=== PATIENT | male | born 1995 | race Caucasian/White ===

== ENCOUNTER 2020-08-06 06:55 | Emergency (ER) | payer OTHER ==
[2020-08-06 07:08] VITALS: TEMP 98.6
--- NOTE | 2020-08-06 07:36 | ED ---
General Adult HPI - General Chief complaint: Chest Pain Stated complaint: Coughing up blood Time Seen by Provider: 08/06/20 07:15 Source: patient Mode of arrival: ambulatory Limitations: no limitations - History of Present Illness Initial comments: Patient is a 25-year-old male presenting to the emergency Department with complaints of having episode of hemoptysis this morning. Patient states he has chronic abdominal pain, he smokes marijuana to help control it. Patient states he did smoke this morning, he went to cough something up and noticed it was a "blood clot." Patient continued to have bright red sputum. Patient states this lasted for about a minute. He did have some left sided rib pain associated with this. Patient states he has had this happen before, a few months ago but it was just a little bit in his sputum. Patient denies any chest pain at this time. He does admit to being an occasional smoker, he stopped daily smoking a year ago, he does smoke marijuana daily. Patient was drinking a little bit last night for his birthday but he had no vomiting. He admits to 2-3 drinks. He denies any shortness of breath, no recent fevers. Denies any abdominal pain at this time. He has no further complaints. Upon arrival to the ER, his vital signs are stable. - Related Data Previous Rx's Medication Instructions Recorded Omeprazole [PriLOSEC] 20 mg PO AC-BRKFST #14 cap 08/06/20 Allergies Allergy/AdvReac Type Severity Reaction Status Date / Time No Known Allergies Allergy Verified 08/06/20 08:32 Review of Systems ROS Statement: Those systems with pertinent positive or pertinent negative responses have been documented in the HPI. ROS Other: All systems not noted in ROS Statement are negative. Past Medical History Past Medical History: No Reported History History of Any Multi-Drug Resistant Organisms: None Reported Past Surgical History: Orthopedic Surgery Past Psychological History: No Psychological Hx Reported Smoking Status: Former smoker Past Alcohol Use History: Occasional Past Drug Use History: Marijuana General Exam - General Exam Comments Initial Comments: GENERAL: Patient is well-developed and well-nourished. Patient is nontoxic and in no acute distress. HEAD: Atraumatic, normocephalic. EYES: Pupils equal round and reactive to light, extraocular movements intact, sclera anicteric, conjunctiva are normal. Eyelids were unremarkable. ENT: TMs normal, nares patent, oropharynx clear without exudates. Moist mucous membranes. NECK: Normal range of motion, supple without lymphadenopathy or JVD. LUNGS: Unlabored respirations. Breath sounds clear to auscultation bilaterally and equal. No wheezes rales or rhonchi. HEART: Regular rate and rhythm without murmurs, rubs or gallops. ABDOMEN: Soft, nontender, normoactive bowel sounds. No guarding, no rebound. No masses appreciated. : Deferred MUSCULOSKELETAL: Normal extremities with adequate strength and normal range of motion, no pitting or edema. No clubbing or cyanosis. NEUROLOGICAL: Patient is alert and oriented x 3. Motor and sensory are also intact. Cranial nerves II through XII grossly intact. Symmetrical smile. Normal speech, normal gait. PSYCH: Normal mood, normal affect. SKIN: Warm, Dry, normal turgor, no rashes or lesions noted. Limitations: no limitations Course Vital Signs 08/06/20 08/06/20 08/06/20 07:05 08:08 09:08 Temperature 98.6 F Pulse Rate 107 H Respiratory 16 18 18 Rate Blood Pressure 143/85 O2 Sat by Pulse 99 Oximetry 08/06/20 08/06/20 08/06/20 09:43 10:00 10:23 Temperature 98.6 F Pulse Rate 78 78 Respiratory 18 18 18 Rate Blood Pressure 126/71 126/71 O2 Sat by Pulse 97 97 Oximetry EKG Findings - EKG Comments: EKG Findings:: Normal sinus rhythm, normal ECG, no signs of acute ischemia. Ventricular rate 81, IL interval 154, QT 358. Medical Decision Making - Medical Decision Making Patient is a 25-year-old male presenting for an episode of hemoptysis that castano ppen this morning after he smoked marijuana. He states initially it was a "blood clot" and continue with bright red blood with a few more coughs. He denies any pain at this time but did have some left-sided rib pain with the coughing. Has revealed normal hemoglobin, normal white count. Chest x-ray shows no acute process, patient has been a symptomatically the ER. I discussed with patient that he needs to follow up with GI for a possible scope. I recommended stop smoking, no alcohol. I did give him GI referral. I also recommended omeprazole. Patient is in agreement this plan of care. Strict return parameters were discussed with the patient and he verbalized understanding. Case discussed with Dr. Cota. - Lab Data Result diagrams: 08/06/20 07:51 08/06/20 07:51 Lab Results 08/06/20 08/06/20 08/06/20 Range/Units 07:51 07:51 07:51 WBC 9.7 (3.8-10.6) k/uL RBC 5.12 (4.30-5.90) m/uL Hgb 15.2 (13.0-17.5) gm/dL Hct 44.4 (39.0-53.0) % MCV 86.7 (80.0-100.0) fL MCH 29.7 (25.0-35.0) pg MCHC 34.3 (31.0-37.0) g/dL RDW 12.2 (11.5-15.5) % Plt Count 320 (150-450) k/uL MPV 6.3 Neutrophils % 65 % Lymphocytes % 24 % Monocytes % 6 % Eosinophils % 3 % Basophils % 1 % Neutrophils # 6.3 (1.3-7.7) k/uL Lymphocytes # 2.3 (1.0-4.8) k/uL Monocytes # 0.6 (0-1.0) k/uL Eosinophils # 0.3 (0-0.7) k/uL Basophils # 0.1 (0-0.2) k/uL PT 9.9 (9.0-12.0) sec INR 0.9 (<1.2) APTT 25.2 (22.0-30.0) sec Sodium 140 (137-145) mmol/L Potassium 4.6 (3.5-5.1) mmol/L Chloride 104 (98-107) mmol/L Carbon Dioxide 24 (22-30) mmol/L Anion Gap 12 mmol/L BUN 14 (9-20) mg/dL Creatinine 0.76 (0.66-1.25) mg/dL Est GFR (CKD-EPI)AfAm >90 (>60 ml/min/1.73 sqM) Est GFR (CKD-EPI)NonAf >90 (>60 ml/min/1.73 sqM) Glucose 94 (74-99) mg/dL Calcium 10.0 (8.4-10.2) mg/dL Total Bilirubin 0.5 (0.2-1.3) mg/dL AST 22 (17-59) U/L ALT 22 (4-49) U/L Alkaline Phosphatase 62 (38-126) U/L Troponin I (0.000-0.034) ng/mL Total Protein 7.5 (6.3-8.2) g/dL Albumin 4.7 (3.5-5.0) g/dL Urine Color Urine Appearance (Clear) Urine pH (5.0-8.0) Ur Specific [place] (1.001-1.035) Urine Protein (Negative) Urine Glucose (UA) (Negative) Urine Ketones (Negative) Urine Blood (Negative) Urine Nitrite (Negative) Urine Bilirubin (Negative) Urine Urobilinogen (<2.0) mg/dL Ur Leukocyte Esterase (Negative) Urine RBC (0-5) /hpf Urine Mucus (None) /hpf Urine Sperm (None) /hpf 08/06/20 08/06/20 Range/Units 07:51 07:51 WBC (3.8-10.6) k/uL RBC (4.30-5.90) m/uL Hgb (13.0-17.5) gm/dL Hct (39.0-53.0) % MCV (80.0-100.0) fL MCH (25.0-35.0) pg MCHC (31.0-37.0) g/dL RDW (11.5-15.5) % Plt Count (150-450) k/uL MPV Neutrophils % % Lymphocytes % % Monocytes % % Eosinophils % % Basophils % % Neutrophils # (1.3-7.7) k/uL Lymphocytes # (1.0-4.8) k/uL Monocytes # (0-1.0) k/uL Eosinophils # (0-0.7) k/uL Basophils # (0-0.2) k/uL PT (9.0-12.0) sec INR (<1.2) APTT (22.0-30.0) sec Sodium (137-145) mmol/L Potassium (3.5-5.1) mmol/L Chloride (98-107) mmol/L Carbon Dioxide (22-30) mmol/L Anion Gap mmol/L BUN (9-20) mg/dL Creatinine (0.66-1.25) mg/dL Est GFR (CKD-EPI)AfAm (>60 ml/min/1.73 sqM) Est GFR (CKD-EPI)NonAf (>60 ml/min/1.73 sqM) Glucose (74-99) mg/dL Calcium (8.4-10.2) mg/dL Total Bilirubin (0.2-1.3) mg/dL AST (17-59) U/L ALT (4-49) U/L Alkaline Phosphatase (38-126) U/L Troponin I 0.033 (0.000-0.034) ng/mL Total Protein (6.3-8.2) g/dL Albumin (3.5-5.0) g/dL Urine Color Yellow Urine Appearance Clear (Clear) Urine pH 5.5 (5.0-8.0) Ur Specific [place] 1.026 (1.001-1.035) Urine Protein 1+ H (Negative) Urine Glucose (UA) Negative (Negative) Urine Ketones Negative (Negative) Urine Blood Trace H (Negative) Urine Nitrite Negative (Negative) Urine Bilirubin Negative (Negative) Urine Urobilinogen <2.0 (<2.0) mg/dL Ur Leukocyte Esterase Trace H (Negative) Urine RBC 3 (0-5) /hpf Urine Mucus Rare H (None) /hpf Urine Sperm Moderate H (None) /hpf Disposition Clinical Impression: Hemoptysis Disposition: HOME SELF-CARE Condition: Stable Instructions (If sedation given, give patient instructions): Hemoptysis (ED) Additional Instructions: Please return to the Emergency Department if symptoms worsen or any other concerns. Discontinue smoking. Trial of omeprazole, daily for 1 month. Please follow up with GI as discussed. Prescriptions: Omeprazole [PriLOSEC] 20 mg PO -BRKFST #14 cap Is patient prescribed a controlled substance at d/c from ED?: No Referrals: Dwight Monsalve DO [Primary Care Provider] - 1-2 days Ivan Menon MD [STAFF PHYSICIAN] - 1-2 days
--- NOTE | 2020-08-06 08:07 | XR ---
EXAMINATION TYPE: XR chest 2V DATE OF EXAM: 08/06/2020 COMPARISON: NONE HISTORY: Hemoptysis. TECHNIQUE: Frontal and lateral views of the chest are obtained. FINDINGS: There is no focal air space opacity, pleural effusion, or pneumothorax seen. The cardiac silhouette size is within normal limits. The osseous structures are intact. IMPRESSION: No acute cardiopulmonary process.
[2020-08-06 08:26] LABS: Appearance,Urine Clear (Clear); Bilirubin,Urine Negative (Negative); Blood,Urine Trace (Negative); Color,Urine Yellow; Glucose,Urine (UA) Negative (Negative); Ketones,Urine Negative (Negative); Leukocyte Esterase,Urine Trace (Negative); Mucus,Urine Rare /hpf; Nitrite,Urine Negative (Negative); PH, Urine 5.5 (5.0-8.0); Protein,Urine 1+ (Negative); RBC,Urine 3 /hpf (0-5); Specific Gravity,Urine 1.026 (1.001-1.035); Sperm,Urine Moderate /hpf; Urobilinogen,Urine <2.0 mg/dL (<2.0)
[2020-08-06 09:11] VITALS: RESP 18
[2020-08-06 09:23] LABS: Basophils # (A) 0.1 k/uL (0-0.2); Basophils % (A) 1 %; Eosinophils # (A) 0.3 k/uL (0-0.7); Eosinophils % (A) 3 %; HCT 44.4 % (39.0-53.0); HGB 15.2 gm/dL (13.0-17.5); Lymphocytes # (A) 2.3 k/uL (1.0-4.8); Lymphocytes % (A) 24 %; MCH 29.7 pg (25.0-35.0); MCHC 34.3 g/dL (31.0-37.0); MCV 86.7 fL (80.0-100.0); Mean Platelet Volume 6.3; Monocytes # (A) 0.6 k/uL (0-1.0); Monocytes % (A) 6 %; Neutrophils # (A) 6.3 k/uL (1.3-7.7); Neutrophils % (A) 65 %; Platelet Count 320 k/uL (150-450); RBC 5.12 m/uL (4.30-5.90); RDW 12.2 % (11.5-15.5); WBC 9.7 k/uL (3.8-10.6)
[2020-08-06 09:34] LABS: ALT 22 U/L (4-49); AST 22 U/L (17-59); African American GFR (CKD) >90 (>60 ml/min/1.73 sqM); Albumin 4.7 g/dL (3.5-5.0); Alkaline Phosphatase 62 U/L (38-126); Anion Gap 12 mmol/L; Blood Urea Nitrogen 14 mg/dL (9-20); Carbon Dioxide 24 mmol/L (22-30); Chloride 104 mmol/L (98-107); Glucose 94 mg/dL (74-99); INR 0.9 (<1.2); Non-African American GFR(CKD) >90 (>60 ml/min/1.73 sqM); Partial Thromboplastin Time 25.2 sec (22.0-30.0); Potassium 4.6 mmol/L (3.5-5.1); Prothrombin Time 9.9 sec (9.0-12.0); Sodium 140 mmol/L (137-145); Total Bilirubin 0.5 mg/dL (0.2-1.3); Total Protein 7.5 g/dL (6.3-8.2)
[2020-08-06 09:43] VITALS: BP 126/71; PULSE 78
== END 2020-08-06 10:25 | disposition home or self-care (01) ==
LOC: EC 06:55
DX: R04.2 Hemoptysis (principal); F12.90 Cannabis use, unspecified, uncomplicated; Z87.891 Personal history of nicotine dependence
CPT/HCPCS: 36415; 71046; 80053; 81001; 84484; 85025; 85610; 85730; 93005; 99285

== ENCOUNTER 2021-01-21 13:46 | Emergency (ER) | payer OTHER ==
[2021-01-21 13:55] VITALS: TEMP 98.3
[2021-01-21] MEDS ORDERED: ONDANSETRON 4 MG/2 ML VIAL IVP STA (15:28)
[2021-01-21] MEDS ORDERED: diphenhydrAMINE 50 MG/ML 1 ML VIAL IVP STA (15:28)
[2021-01-21] MEDS ORDERED: SODIUM CHLORIDE 0.9% 1,000 ML IV STA (15:28)
[2021-01-21] MEDS ORDERED: FAMOTIDINE 20 MG/2 ML VIAL IV STA (15:29)
[2021-01-21 15:53] LABS: Basophils # (A) 0.1 k/uL (0-0.2); Basophils % (A) 1 %; Eosinophils # (A) 0.1 k/uL (0-0.7); Eosinophils % (A) 1 %; HCT 43.7 % (39.0-53.0); HGB 15.2 gm/dL (13.0-17.5); Lymphocytes % (A) 26 %; MCH 30.8 pg (25.0-35.0); MCHC 34.7 g/dL (31.0-37.0); MCV 88.6 fL (80.0-100.0); Mean Platelet Volume 8.1; Monocytes # (A) 0.6 k/uL (0-1.0); Monocytes % (A) 5 %; Neutrophils # (A) 7.6 k/uL (1.3-7.7); Neutrophils % (A) 66 %; Platelet Count 368 k/uL (150-450); RBC 4.93 m/uL (4.30-5.90); WBC 11.5 k/uL (3.8-10.6)
[2021-01-21 16:00] LABS: ALT 19 U/L (4-49); AST 27 U/L (17-59); African American GFR (CKD) >90 (>60 ml/min/1.73 sqM); Albumin 4.9 g/dL (3.5-5.0); Alkaline Phosphatase 76 U/L (38-126); Anion Gap 18 mmol/L; Blood Urea Nitrogen 12 mg/dL (9-20); Carbon Dioxide 15 mmol/L (22-30); Chloride 104 mmol/L (98-107); Glucose 99 mg/dL (74-99); Lipase 1227 U/L (23-300); Magnesium 1.4 mg/dL (1.6-2.3); Non-African American GFR(CKD) >90 (>60 ml/min/1.73 sqM); Potassium 3.4 mmol/L (3.5-5.1); Sodium 137 mmol/L (137-145); Total Bilirubin 0.4 mg/dL (0.2-1.3); Total Protein 7.3 g/dL (6.3-8.2)
[2021-01-21 16:09] LABS: Partial Thromboplastin Time 21.7 sec (22.0-30.0); Prothrombin Time 11.1 sec (9.0-12.0)
--- NOTE | 2021-01-21 16:41 | XR ---
EXAMINATION TYPE: XR chest 2V DATE OF EXAM: 01/21/2021 COMPARISON: 08/06/2020 HISTORY: 25-year-old male with chest pain and weakness TECHNIQUE: PA and lateral views FINDINGS: The cardiomediastinal silhouette, aorta, and pulmonary vasculature are within normal limits. Lungs an d pleural spaces are clear. IMPRESSION: No acute cardiopulmonary process.
[2021-01-21] MEDS ORDERED: POTASSIUM CHLORIDE ER 20 MEQ TAB.ER PO STA (16:57)
[2021-01-21] MEDS ORDERED: MAGNESIUM SULFATE-D5W PMX 1 GM in DEXTROSE/WATER 1 100ML.BAG IVPB SCH (17:00)
--- NOTE | 2021-01-21 17:37 | CT ---
EXAMINATION TYPE: CT abdomen pelvis w con DATE OF EXAM: 01/21/2021 COMPARISON: 09/11/2013 HISTORY: Epigastric pain and palpitations. CT DLP: 1159.8 mGycm Automated exposure control for dose reduction was used. CONTRAST: Performed with IV Contrast, patient injected with 100 mL of Isovue 300. Lung bases are clear. There is no pleural effusion. Heart size is normal. There is no pericardial eff usion. Liver spleen stomach pancreas gallbladder appear normal. Bile ducts are not dilated. There is no adre nal mass. Kidneys have normal size. There is no hydronephrosis. There is normal contrast opacificatio n of the kidneys. Delayed images show normal renal excretion. There is no retroperitoneal adenopathy. Bladder distends smoothly. There is no inguinal hernia. There is no free fluid in the pelvis. There is no mesenteric edema. There is no ascites or free air. There is no bowel obstruction. Appendi x measures 7 mm. There is some air in the appendix and no evidence of inflammation around the appendi x. There is L5 spondylolysis with a minimal L5-S1 spondylolisthesis. There is no lumbar compression frac ture. Bony pelvis is intact. Hip joints are intact. IMPRESSION: Appendix upper limit of normal size but not changed compared to old exam. No evidence of appendicitis . L5 spondylolysis with first-degree L5-S1 spondylolisthesis. I do not see a cause for epigastric pain.
--- NOTE | 2021-01-21 18:37 | ED ---
General Adult HPI - General Chief complaint: Chest Pain Stated complaint: Dehydration, Chest Pain Source: patient Mode of arrival: ambulatory Limitations: no limitations - History of Present Illness Initial comments: Patient is a 25-year-old male that is relatively healthy presents emergency Department complaining of epigastric abdominal discomfort as well as chest palpitations. He states any focal palpitations associated with nonspecific shortness breath earlier. States this did occur previously multiple months ago, however workup in the emergency department revealed no results. Patient states that today he was also expressing some epigastric abdominal discomfort. He describes the pain as a achy, sharp sensation epigastric region. He describes the palpitations as heart racing sensation over his left chest. He does endorse a history of acid reflux and states that he believes this may be what is causing his symptoms, however he was feeling a little lightheaded today while at work as well which prompted him to come to the emergency department for evaluation. Symptoms all started earlier this morning. He denies any fevers, chills, cough. He was not vaccinated for COVID-19. Denies any urinary complaints, constipation. Still passing adequate flatus. He states he did feel nauseous but had no episodes of emesis. He denies any history of drug use. Endorses occasional marijuana and alcohol use but not every day.. He was a former tobacco smoker. He denies any sick contacts. He otherwise has no acute complaints at this time. Patient is concerned over his chest discomfort as well as his epigastric abdominal pain. - Related Data Home Medications Medication Instructions Recorded Confirmed Acetaminophen [Tylenol] 650 mg PO ONCE PRN 01/21/21 01/21/21 Previous Rx's Medication Instructions Recorded Famotidine [Pepcid] 20 mg PO DAILY 14 Days #14 tablet 01/21/21 Ibuprofen [Motrin] 800 mg PO Q8H PRN 7 Days #21 tab 01/21/21 Mag Hydrox/Al Hydrox/Simeth 30 ml PO BID PRN #500 ml 01/21/21 [Maalox] Ondansetron Odt [Zofran Odt] 4 mg PO Q8HR PRN 2 Days #6 tab 01/21/21 Allergies Allergy/AdvReac Type Severity Reaction Status Date / Time No Known Allergies Allergy Verified 01/21/21 16:58 Review of Systems ROS Statement: Those systems with pertinent positive or pertinent negative responses have been documented in the HPI. Review of Systems: CONST: Denies fever EYES: Denies blurry vision ENT: Denies nasal congestion C/V: Endorses palpitations RESP: Endorses mild shortness breath GI: Endorses abdominal pain : Denies dysuria SKIN: Denies rash. MSK: Denies joint pain. NEURO: Denies headache ROS Other: All systems not noted in ROS Statement are negative. Past Medical History Past Medical History: No Reported History History of Any Multi-Drug Resistant Organisms: None Reported Past Surgical History: Orthopedic Surgery Past Psychological History: No Psychological Hx Reported Smoking Status: Former smoker Past Alcohol Use History: Occasional Past Drug Use History: Marijuana General Exam - General Exam Comments Initial Comments: General: Appears in no acute distress. HEAD: Normal with no signs of head trauma. EYES: PERRLA, EOMI, conjunctiva normal, no discharge. ENT: Hearing grossly intact, normal oropharynx. Moist mucous members. RESPIRATORY: Clear breath sounds bilaterally. No wheezes, rales, or rhonchi. No increased work of breathing. C/V: Patient is tachycardic with a regular rhythm. S1 and S2 auscultated. Peripheral pulses are 2+ intact. No peripheral edema. ABD: Abdomen soft, nondistended. He is very mild tightness to palpation in the epigastric region. There are no peritoneal signs. No rebound tenderness. No CVA tenderness to percussion. Unimpressive abdominal exam. EXT: Normal range of motion, no obvious deformity SKIN: No rashes or lesions observed on exposed skin. NEURO: Alert and oriented 4. Limitations: no limitations Course Vital Signs 01/21/21 01/21/21 01/21/21 13:50 15:28 16:12 Temperature 98.3 F Pulse Rate 131 H 114 H 111 H Respiratory 18 18 16 Rate Blood Pressure 143/84 124/84 114/79 O2 Sat by Pulse 98 95 98 Oximetry 01/21/21 01/21/21 01/21/21 16:30 17:00 17:30 Temperature Pulse Rate 108 H 95 118 H Respiratory 18 16 14 Rate Blood Pressure 114/79 109/68 111/57 O2 Sat by Pulse 99 96 98 Oximetry 01/21/21 01/21/21 18:00 18:30 Temperature Pulse Rate 92 90 Respiratory 18 18 Rate Blood Pressure 130/87 119/63 O2 Sat by Pulse 96 Oximetry Medical Decision Making - Medical Decision Making Based on the patient's presentation and physical exam, I'm concerned for possible intra-abdominal process for the patient, but possibly cardiac etiology at this time. Patient does not perc out. Well's scores low for pulmonary embolism. Therefore we will also obtain a screening d-dimer for PE at this time. This is in addition to a cardiac work up and troponin, EKG, chest x-ray as well as abdominal laboratory studies. Patient will be sent likely treatment with a 1 L fluid bolus, IV famotidine, Zofran, Benadryl. Patient was in agreement this plan. Patient's EKG shows no signs of acute ischemia. Patient's chest x-ray shows no acute cardiopulmonary process. Laboratory studies are remarkable for a negative d-dimer, negative troponin, mild decrease in bicarbonate of 15. Patient is also hypokalemic at 3.4 and hypomagnesemia 1.4. Patient's lipase is elevated to 1227 with normal LFTs and bilirubin. Patient is a very slight leukocytosis of 11.5. D-dimer and troponin are negative. On reevaluation, patient is feeling improved. He is tolerating by mouth intake. He states that his abdominal discomfort has resolved as has his nausea as well as his palpitations. Heart rate is now within normal limits at 90 bpm. I did discuss with him the results of his laboratory studies and due to his elevated lipase of but like to obtain a CT abdomen and pelvis at this time. He was in agreement this am. Also be given magnesium and potassium replenishment. Patient's CT abdomen and pelvis revealed no acute intra-abdominal process. No signs of pancreatitis. Reevaluation patient remains asymptomatic. Despite his elevated lipase, I do not believe that he requires immediate admission to the hospital for evaluation by gastroenterology. I would like him follow up on an outpatient basis. His normal imaging, has normal vital signs, tolerating by mouth intake at this time. Patient is otherwise a healthy individual. He was in agreement this plan. I answered all questions that he had. I will provide the patient with a prescription for Maalox, ibuprofen, Pepcid, Zofran ODT. I instructed the patient to follow up with their PCP in the next 3 days. I provided contact information for follow up with Dr. Figueroa of gastroenterology. I explained that the patient should return to the emergency department if they experience any worsening symptoms. Strict return precautions were discussed with the patient. The patient expressed understanding of these instructions. I answered all questions that the patient had. The patient was discharged home in fair condition with their prescriptions and follow up information. - Lab Data Result diagrams: 01/21/21 15:35 01/21/21 15:35 Lab Results 01/21/21 01/21/21 01/21/21 Range/Units 15:35 15:35 15:35 WBC 11.5 H (3.8-10.6) k/uL RBC 4.93 (4.30-5.90) m/uL Hgb 15.2 (13.0-17.5) gm/dL Hct 43.7 (39.0-53.0) % MCV 88.6 (80.0-100.0) fL MCH 30.8 (25.0-35.0) pg MCHC 34.7 (31.0-37.0) g/dL RDW 13.0 (11.5-15.5) % Plt Count 368 (150-450) k/uL MPV 8.1 Neutrophils % 66 % Lymphocytes % 26 % Monocytes % 5 % Eosinophils % 1 % Basophils % 1 % Neutrophils # 7.6 (1.3-7.7) k/uL Lymphocytes # 3.0 (1.0-4.8) k/uL Monocytes # 0.6 (0-1.0) k/uL Eosinophils # 0.1 (0-0.7) k/uL Basophils # 0.1 (0-0.2) k/uL PT 11.1 (9.0-12.0) sec INR 1.0 (<1.2) APTT 21.7 L (22.0-30.0) sec D-Dimer <0.17 (<0.60) mg/L FEU Sodium 137 (137-145) mmol/L Potassium 3.4 L (3.5-5.1) mmol/L Chloride 104 (98-107) mmol/L Carbon Dioxide 15 L (22-30) mmol/L Anion Gap 18 mmol/L BUN 12 (9-20) mg/dL Creatinine 0.88 (0.66-1.25) mg/dL Est GFR (CKD-EPI)AfAm >90 (>60 ml/min/1.73 sqM) Est GFR (CKD-EPI)NonAf >90 (>60 ml/min/1.73 sqM) Glucose 99 (74-99) mg/dL Calcium 10.0 (8.4-10.2) mg/dL Magnesium 1.4 L (1.6-2.3) mg/dL Total Bilirubin 0.4 (0.2-1.3) mg/dL AST 27 (17-59) U/L ALT 19 (4-49) U/L Alkaline Phosphatase 76 (38-126) U/L Troponin I (0.000-0.034) ng/mL Total Protein 7.3 (6.3-8.2) g/dL Albumin 4.9 (3.5-5.0) g/dL Lipase 1227 H (23-300) U/L 01/21/21 Range/Units 15:35 WBC (3.8-10.6) k/uL RBC (4.30-5.90) m/uL Hgb (13.0-17.5) gm/dL Hct (39.0-53.0) % MCV (80.0-100.0) fL MCH (25.0-35.0) pg MCHC (31.0-37.0) g/dL RDW (11.5-15.5) % Plt Count (150-450) k/uL MPV Neutrophils % % Lymphocytes % % Monocytes % % Eosinophils % % Basophils % % Neutrophils # (1.3-7.7) k/uL Lymphocytes # (1.0-4.8) k/uL Monocytes # (0-1.0) k/uL Eosinophils # (0-0.7) k/uL Basophils # (0-0.2) k/uL PT (9.0-12.0) sec INR (<1.2) APTT (22.0-30.0) sec D-Dimer (<0.60) mg/L FEU Sodium (137-145) mmol/L Potassium (3.5-5.1) mmol/L Chloride (98-107) mmol/L Carbon Dioxide (22-30) mmol/L Anion Gap mmol/L BUN (9-20) mg/dL Creatinine (0.66-1.25) mg/dL Est GFR (CKD-EPI)AfAm (>60 ml/min/1.73 sqM) Est GFR (CKD-EPI)NonAf (>60 ml/min/1.73 sqM) Glucose (74-99) mg/dL Calcium (8.4-10.2) mg/dL Magnesium (1.6-2.3) mg/dL Total Bilirubin (0.2-1.3) mg/dL AST (17-59) U/L ALT (4-49) U/L Alkaline Phosphatase (38-126) U/L Troponin I <0.012 (0.000-0.034) ng/mL Total Protein (6.3-8.2) g/dL Albumin (3.5-5.0) g/dL Lipase (23-300) U/L - EKG Data -: EKG Interpreted by Me EKG Comments: 12-lead Electrocardiogram Interpretation Note EKG was reviewed and interpreted by myself. 12-lead ECG performed at 14 00 is interpreted by me as revealing sinus tachycardia at a rate of 125 beats per minute. [place] is normal. MT interval 252 ms, QRS duration is 92 ms, QTc is 433 ms.. There were no ST or T wave abnormalities to suggest myocardial ischemia or injury. R wave progression across the precordium was satisfactory]. [By my interpretation this EKG is non-diagnostic for acute ischemia. There are some nonspecific T-wave inversions. Disposition Clinical Impression: Abdominal pain, Pancreatitis, Nausea, Hypomagnesemia, Hypokalemia, Chest pain of unknown etiology Disposition: HOME SELF-CARE Condition: Fair Instructions (If sedation given, give patient instructions): Pancreatitis (ED), Abdominal Pain (ED) Prescriptions: Mag Hydrox/Al Hydrox/Simeth [Maalox] 30 ml PO BID PRN #500 ml PRN Reason: Dyspepsia Ibuprofen [Motrin] 800 mg PO Q8H PRN 7 Days #21 tab PRN Reason: Pain Famotidine [Pepcid] 20 mg PO DAILY 14 Days #14 tablet Ondansetron Odt [Zofran Odt] 4 mg PO Q8HR PRN 2 Days #6 tab PRN Reason: Nausea Is patient prescribed a controlled substance at d/c from ED?: No Referrals: Dwight Monsalve DO [Primary Care Provider] - 1-2 days Malathi Figueroa MD [STAFF PHYSICIAN] - 1-2 days
[2021-01-21 18:56] VITALS: BP 119/63; PULSE 90; RESP 18
== END 2021-01-21 19:13 | disposition home or self-care (01) ==
LOC: EC 13:46
DX: E83.42 Hypomagnesemia (principal); E87.6 Hypokalemia; K85.90 Acute pancreatitis without necrosis or infection, unspecified; R07.89 Other chest pain; Z87.891 Personal history of nicotine dependence
CPT/HCPCS: 36415; 85379; 80053; 83690; 83735; 84484; 85025; 85610; 85730; 71046; 74177; 99285; 96365; 96366; 96375; 96361; 96374; J1200; J2405; J3475; Q9967